=== PATIENT | male | born 1995 | race Caucasian/White ===

== ENCOUNTER 2016-04-06 16:31 | Emergency (ER) | payer BC ==
[2016-04-06] MEDS ORDERED: METOCLOPRAMIDE 10 MG TAB As Ordered ONE (19:02)
[2016-04-06] MEDS ORDERED: KETOROLAC 30 MG/ML VIAL (J1885) As Ordered ONE (19:03)
--- NOTE | 2016-04-06 19:25 | EDDOCDS ---
Nurse's Notes [facility] Name: Fernando Hackett Age: 21 yrs Sex: Male : 1995 Arrival Date: 04/06/2016 Time: 16:31 Bed TR3 Private MD: NO PRIMARY PHYSICIAN, . Diagnosis: Headache Presentation: 04/06 17:04 Presenting complaint: Patient states: "Woke up this morning with the worst headache lf1 I've ever had that lasted for two hours". Reports headache has gotten better but is currently 8/10 with photophobia and nausea. Pt reports history of stress headaches and migraines but that they have been worse lately. Pt. reports no neurologist or PCP. This patient has no additional risk factors. Adult Sepsis Screening: The patient does not have new or worsening altered mentation. Patient's respiratory rate is less than 22. Systolic blood pressure is greater than 100. Patient has a qSOFA score of 0- Negative Sepsis Screen. Suicide/Homicide risk assessment- the patient denies having any suicidal and/or homicidal ideations and does not present with any other emotional, behavioral or mental health complaints. 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 Transition of care: patient was not received from another setting of care. 17:04 Acuity: QUAN Level 3 lf1 17:04 Method Of Arrival: Walkin/Carried/Asstd lf1 Triage Assessment: 17:08 Headache History: This headache is more severe than any previous headaches the patient lf1 has experienced. General: Appears Pt reports this morning the headache was worse than any he has ever had, but at this time it is similar to previous headaches. Pain: Pain currently is 8 out of 10 on a pain scale. Quality of pain is described as throbbing, Pain began 10 hours ago Also complains of nausea, photophobia. HIV screening NA for this visit Offered previously. Neurological: Level of Consciousness is awake, alert, Oriented to person, place, time, Speech is normal. EENT: Reports photophobia. Respiratory: Respiratory effort is even, unlabored. GI: Reports nausea. Derm: Skin is normal. Historical: - Allergies: SULFA (SULFONAMIDES)swelling of hands and feet; - Home Meds: 1. Tylenol 325 mg Oral tab 2 tabs every 4 hours (Last dose: 04/06/2016 07:00) - PMHx: Migraine Headaches; - PSHx: none; - Social history: Smoking status: Patient uses tobacco products, current every day smoker. No barriers to communication noted, The patient speaks fluent Slovak, Speaks appropriately for age, Preferred Language: Slovak. - Family history: Not pertinent. - : The pt / caregiver states he / she is not on anticoagulants. Home medication list is obtained from the patient. - Exposure Risk Screening:: None identified. Screenin:10 Screening information is obtained from the patient. Fall risk: No risks identified. lf1 Assistance ADL's: requires no assistance with activities of daily living. Abuse/DV Screen: The patient / caregiver reports he/she is: not in a situation that causes fear, pain or injury. Nutritional screening: No deficits noted. Advance Directives: Currently, there is no health care proxy. There is no active DNR order. There is no living will. home support is adequate. Assessment: 19:20 Adult Sepsis Screening: The patient does not have new or worsening altered mentation. lf1 Patient's respiratory rate is less than 22. Systolic blood pressure is greater than 100. Patient has a qSOFA score of 0- Negative Sepsis Screen. 19:20 General: Appears in no apparent distress, comfortable, Behavior is cooperative. Pain: lf1 Location: base of the skull Pain currently is 5 out of 10 on a pain scale. Neurological: Level of Consciousness is awake, alert, Oriented to person, place, time. EENT: No deficits noted. Cardiovascular: No deficits noted. Respiratory: Respiratory effort is even, unlabored. GI: Denies nausea, vomiting. Derm: Skin is normal. Vital Signs: 16:32 BP 163 / 71; Pulse 96; Resp 18 S; Temp 96.3; Pulse Ox 98% on R/A; Weight 113.4 kg (R); dd6 Height 5 ft. 11 in. (180.34 cm) (R); 19:20 BP 140 / 84; Pulse 70; Resp 16; Pulse Ox 98% on R/A; Pain 5/10; lf1 19:23 Pain 5/10; lf1 16:32 Body Mass Index 34.87 (113.40 kg, 180.34 cm) dd6 Vitals: 16:32 Log In Time: April 06, 2016 at 16:30. dd6 ED Course: 16:31 Patient visited by Gilbert Andino PCA. dd6 16:31 NO PRIMARY PHYSICIAN, . is Private Physician. dd6 16:31 Patient moved to Waiting dd6 16:32 Patient moved to Pre RCE dd6 17:07 Triage Initiated lf1 18:25 Patient moved to Triage 1 kr3 18:31 Adan Centeno PA-C is PHCP. cc10 18:31 Ramón Zambrano MD is Attending Physician. cc10 18:31 Patient visited by Adan Centeno PA-C. cc10 18:31 Patient visited by Adan Centeno PA-C. cc10 18:55 Santiago Vargas is Referral Physician. cc10 19:09 Patient visited by Paulette Matute RN. ko2 19:20 Patient visited by Janice Person RN. lf1 19:20 The patient / caregiver is instructed regarding the plan of care and ED course. lf1 19:20 No IV's were initiated during this patient's visit. No procedures done that require lf1 assistance. 19:23 Patient moved to TR3 mdr Administered Medications: 19:05 Drug: ketorolac 60 mg [ketorolac 30 mg/mL (1 mL) injection solution (2 mL)] Route: IM; ko2 Site: right gluteus; 19:23 Follow up: Response: Pain is decreased lf1 19:05 Drug: Metoclopramide 10 mg [metoclopramide 10 mg tablet (1 tabs)] Route: PO; ko2 19:23 Follow up: Pain 5/10 Adult; Response: Pain is decreased lf1 Order Results: There are currently no results for this order. Outcome: 18:55 Discharge ordered by Provider. cc10 19:24 Discharge Assessment: Patient awake, alert and oriented x 3. No cognitive and/or lf1 functional deficits noted. Patient verbalized understanding of disposition instructions. Patient awake and alert. Oriented to person, place and time. Patient verbalized understanding of disposition instructions. patient administered narcotics - no. The following High Risk Discharge criteria are identified: None. Discharged to home ambulatory, with family. Condition: improved. Discharge instructions given to patient, Instructed on discharge instructions, follow up and referral plans. medication usage, Demonstrated understanding of instructions, medications, Pt was receptive of discharge instructions/ teaching. Prescriptions given X 2, Work note provided to patient. No special radiology studies were completed. Property :Personal belongings accompany Pt. 19:24 Patient left the ED. lf1 Signatures: Marisela Whitehead,RN RN kr3 Janice Person RN RN lf1 Gilbert Andino, INTAKE MAN INTAKE MAN dd6 Adan Centeno, PA-C PA-C cc10 Paulette Matute RN RN ko2 Femi Kaminski, INTAKE MAN INTAKE MAN mdr MTDD
--- NOTE | 2016-04-06 19:25 | EDDOCDS ---
Physician Documentation [facility] Name: Fernando Hackett Age: 21 yrs Sex: Male : 1995 Arrival Date: 04/06/2016 Time: 16:31 Bed TR3 Private MD: NO PRIMARY PHYSICIAN, . Disposition: 04/06/16 18:55 Discharged to Home/Self Care. Impression: Headache. - Condition is Stable. - Discharge Instructions: Migraine Headache. - Prescriptions for Naprosyn 500 mg Oral Tablet - take 1 tablet by ORAL route 2 times per day take with food; 30 tablet. - Medication Reconciliation, Local Pharmacy Hours, Work Release Form - 1 day form. - Follow up: Emergency Department; When: As needed. Follow up: Santiago Vargas; When: Call to arrange an appointment; Reason: Wound/Symptom Recheck, Recheck today's complaints, Continuance of care, To establish care. - Problem is chronic. - Symptoms have improved. Historical: - Allergies: SULFA (SULFONAMIDES)swelling of hands and feet; - Home Meds: 1. Tylenol 325 mg Oral tab 2 tabs every 4 hours (Last dose: 04/06/2016 07:00) - PMHx: Migraine Headaches; - PSHx: none; - Social history: Smoking status: Patient uses tobacco products, current every day smoker. No barriers to communication noted, The patient speaks fluent Argentine, Speaks appropriately for age, Preferred Language: Argentine. - Family history: Not pertinent. - : The pt / caregiver states he / she is not on anticoagulants. Home medication list is obtained from the patient. - Exposure Risk Screening:: None identified. Vital Signs: 04/06 16:32 BP 163 / 71; Pulse 96; Resp 18 S; Temp 96.3; Pulse Ox 98% on R/A; Weight 113.4 kg / 250 dd6 lbs (R); Height 5 ft. 11 in. (180.34 cm) (R); 19:20 BP 140 / 84; Pulse 70; Resp 16; Pulse Ox 98% on R/A; Pain 5/10; lf1 19:23 Pain 5/10; lf1 16:32 Body Mass Index 34.87 (113.40 kg, 180.34 cm) dd6 MDM: 18:34 Financial registration complete. gb 18:54 ketorolac 60 mg IM once ordered. cc10 18:54 Metoclopramide 10 mg PO once ordered. cc10 Administered Medications: 19:05 Drug: ketorolac 60 mg [ketorolac 30 mg/mL (1 mL) injection solution (2 mL)] Route: IM; ko2 Site: right gluteus; 19:23 Follow up: Response: Pain is decreased lf1 19:05 Drug: Metoclopramide 10 mg [metoclopramide 10 mg tablet (1 tabs)] Route: PO; ko2 19:23 Follow up: Pain 07/21 Adult; Response: Pain is decreased lf1 Signatures: Radha Gomes, Reg Reg gb Janice Person RN RN lf1 Adan Centeno PA-C PAKavin cc10 Paulette Matute RN ko2 MTDD
--- NOTE | 2016-04-08 20:26 | EDDOCDS ---
Physician Documentation [facility] Name: Fernando Hackett Age: 21 yrs Sex: Male : 1995 Arrival Date: 04/06/2016 Time: 16:31 Bed TR3 Private MD: NO PRIMARY PHYSICIAN, . Disposition: 04/06/16 18:55 Discharged to Home/Self Care. Impression: Headache. - Condition is Stable. - Discharge Instructions: Migraine Headache. - Prescriptions for Naprosyn 500 mg Oral Tablet - take 1 tablet by ORAL route 2 times per day take with food; 30 tablet. - Medication Reconciliation, Local Pharmacy Hours, Work Release Form - 1 day form. - Follow up: Emergency Department; When: As needed. Follow up: Santiago Vargas; When: Call to arrange an appointment; Reason: Wound/Symptom Recheck, Recheck today's complaints, Continuance of care, To establish care. - Problem is chronic. - Symptoms have improved. Historical: - Allergies: SULFA (SULFONAMIDES)swelling of hands and feet; - Home Meds: 1. Tylenol 325 mg Oral tab 2 tabs every 4 hours (Last dose: 04/06/2016 07:00) - PMHx: Migraine Headaches; - PSHx: none; - Social history: Smoking status: Patient uses tobacco products, current every day smoker. No barriers to communication noted, The patient speaks fluent Latvian, Speaks appropriately for age, Preferred Language: Latvian. - Family history: Not pertinent. - : The pt / caregiver states he / she is not on anticoagulants. Home medication list is obtained from the patient. - Exposure Risk Screening:: None identified. Vital Signs: 04/06 16:32 BP 163 / 71; Pulse 96; Resp 18 S; Temp 96.3; Pulse Ox 98% on R/A; Weight 113.4 kg / 250 dd6 lbs (R); Height 5 ft. 11 in. (180.34 cm) (R); 19:20 BP 140 / 84; Pulse 70; Resp 16; Pulse Ox 98% on R/A; Pain 5/10; lf1 19:23 Pain 5/10; lf1 16:32 Body Mass Index 34.87 (113.40 kg, 180.34 cm) dd6 MDM: 18:34 Financial registration complete. gb 18:54 ketorolac 60 mg IM once ordered. cc10 18:54 Metoclopramide 10 mg PO once ordered. cc10 20:30 [facility] Payment Agreement was scanned into [employer] and attached to record. gb 04/07 03:10 T-Sheet-- Draft Copy was scanned into [employer] and attached to record. hs2 Administered Medications: 04/06 19:05 Drug: ketorolac 60 mg [ketorolac 30 mg/mL (1 mL) injection solution (2 mL)] Route: IM; ko2 Site: right gluteus; 19:23 Follow up: Response: Pain is decreased lf1 19:05 Drug: Metoclopramide 10 mg [metoclopramide 10 mg tablet (1 tabs)] Route: PO; ko2 19:23 Follow up: Pain 5/ Adult; Response: Pain is decreased lf1 Signatures: Radha Gomes, Reg Reg gb Janice Person RN RN lf1 Adan Centeno, JUANITA PAKavin cc10 Joanie Sandoval, Reg Reg hs2 Paulette Matute RN ko2 The chart was reviewed and I authenticate all verbal orders and agree with the evaluation and treatment provided.Attachments: 20:30 [facility] Payment Agreement gb 04/07 03:10 T-Sheet-- Draft Copy hs2 Chart Complete MTDD
--- NOTE | 2016-04-08 20:26 | EDDOCDS ---
Physician Documentation [facility] Name: Fernando Hackett Age: 21 yrs Sex: Male : 1995 Arrival Date: 04/06/2016 Time: 16:31 Bed TR3 Private MD: NO PRIMARY PHYSICIAN, . Disposition: 04/06/16 18:55 Discharged to Home/Self Care. Impression: Headache. - Condition is Stable. - Discharge Instructions: Migraine Headache. - Prescriptions for Naprosyn 500 mg Oral Tablet - take 1 tablet by ORAL route 2 times per day take with food; 30 tablet. - Medication Reconciliation, Local Pharmacy Hours, Work Release Form - 1 day form. - Follow up: Emergency Department; When: As needed. Follow up: Santiago Vargas; When: Call to arrange an appointment; Reason: Wound/Symptom Recheck, Recheck today's complaints, Continuance of care, To establish care. - Problem is chronic. - Symptoms have improved. Historical: - Allergies: SULFA (SULFONAMIDES)swelling of hands and feet; - Home Meds: 1. Tylenol 325 mg Oral tab 2 tabs every 4 hours (Last dose: 04/06/2016 07:00) - PMHx: Migraine Headaches; - PSHx: none; - Social history: Smoking status: Patient uses tobacco products, current every day smoker. No barriers to communication noted, The patient speaks fluent Kuwaiti, Speaks appropriately for age, Preferred Language: Kuwaiti. - Family history: Not pertinent. - : The pt / caregiver states he / she is not on anticoagulants. Home medication list is obtained from the patient. - Exposure Risk Screening:: None identified. Vital Signs: 04/06 16:32 BP 163 / 71; Pulse 96; Resp 18 S; Temp 96.3; Pulse Ox 98% on R/A; Weight 113.4 kg / 250 dd6 lbs (R); Height 5 ft. 11 in. (180.34 cm) (R); 19:20 BP 140 / 84; Pulse 70; Resp 16; Pulse Ox 98% on R/A; Pain 5/10; lf1 19:23 Pain 5/10; lf1 16:32 Body Mass Index 34.87 (113.40 kg, 180.34 cm) dd6 MDM: 18:34 Financial registration complete. gb 18:54 ketorolac 60 mg IM once ordered. cc10 18:54 Metoclopramide 10 mg PO once ordered. cc10 20:30 [facility] Payment Agreement was scanned into [employer] and attached to record. gb 04/07 03:10 T-Sheet-- Draft Copy was scanned into [employer] and attached to record. hs2 Administered Medications: 04/06 19:05 Drug: ketorolac 60 mg [ketorolac 30 mg/mL (1 mL) injection solution (2 mL)] Route: IM; ko2 Site: right gluteus; 19:23 Follow up: Response: Pain is decreased lf1 19:05 Drug: Metoclopramide 10 mg [metoclopramide 10 mg tablet (1 tabs)] Route: PO; ko2 19:23 Follow up: Pain 5/ Adult; Response: Pain is decreased lf1 Signatures: Radha Gomes, Reg Reg gb Janice Person RN RN lf1 Adan Centeno, JUANITA PAKavin cc10 Joanie Sandoval, Reg Reg hs2 Paulette Matute RN ko2 The chart was reviewed and I authenticate all verbal orders and agree with the evaluation and treatment provided.Attachments: 20:30 [facility] Payment Agreement gb 04/07 03:10 T-Sheet-- Draft Copy hs2 Chart Complete MTDD
--- NOTE | 2016-04-08 20:26 | EDDOCDS ---
Nurse's Notes [facility] Name: Fernando Hackett Age: 21 yrs Sex: Male : 1995 Arrival Date: 04/06/2016 Time: 16:31 Bed TR3 Private MD: NO PRIMARY PHYSICIAN, . Diagnosis: Headache Presentation: 04/06 17:04 Presenting complaint: Patient states: "Woke up this morning with the worst headache lf1 I've ever had that lasted for two hours". Reports headache has gotten better but is currently 8/10 with photophobia and nausea. Pt reports history of stress headaches and migraines but that they have been worse lately. Pt. reports no neurologist or PCP. This patient has no additional risk factors. Adult Sepsis Screening: The patient does not have new or worsening altered mentation. Patient's respiratory rate is less than 22. Systolic blood pressure is greater than 100. Patient has a qSOFA score of 0- Negative Sepsis Screen. Suicide/Homicide risk assessment- the patient denies having any suicidal and/or homicidal ideations and does not present with any other emotional, behavioral or mental health complaints. 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 Transition of care: patient was not received from another setting of care. 17:04 Acuity: QUAN Level 3 lf1 17:04 Method Of Arrival: Walkin/Carried/Asstd lf1 Triage Assessment: 17:08 Headache History: This headache is more severe than any previous headaches the patient lf1 has experienced. General: Appears Pt reports this morning the headache was worse than any he has ever had, but at this time it is similar to previous headaches. Pain: Pain currently is 8 out of 10 on a pain scale. Quality of pain is described as throbbing, Pain began 10 hours ago Also complains of nausea, photophobia. HIV screening NA for this visit Offered previously. Neurological: Level of Consciousness is awake, alert, Oriented to person, place, time, Speech is normal. EENT: Reports photophobia. Respiratory: Respiratory effort is even, unlabored. GI: Reports nausea. Derm: Skin is normal. Historical: - Allergies: SULFA (SULFONAMIDES)swelling of hands and feet; - Home Meds: 1. Tylenol 325 mg Oral tab 2 tabs every 4 hours (Last dose: 04/06/2016 07:00) - PMHx: Migraine Headaches; - PSHx: none; - Social history: Smoking status: Patient uses tobacco products, current every day smoker. No barriers to communication noted, The patient speaks fluent [place] Islander, Speaks appropriately for age, Preferred Language: [place] Islander. - Family history: Not pertinent. - : The pt / caregiver states he / she is not on anticoagulants. Home medication list is obtained from the patient. - Exposure Risk Screening:: None identified. Screenin:10 Screening information is obtained from the patient. Fall risk: No risks identified. lf1 Assistance ADL's: requires no assistance with activities of daily living. Abuse/DV Screen: The patient / caregiver reports he/she is: not in a situation that causes fear, pain or injury. Nutritional screening: No deficits noted. Advance Directives: Currently, there is no health care proxy. There is no active DNR order. There is no living will. home support is adequate. Assessment: 19:20 Adult Sepsis Screening: The patient does not have new or worsening altered mentation. lf1 Patient's respiratory rate is less than 22. Systolic blood pressure is greater than 100. Patient has a qSOFA score of 0- Negative Sepsis Screen. 19:20 General: Appears in no apparent distress, comfortable, Behavior is cooperative. Pain: lf1 Location: base of the skull Pain currently is 5 out of 10 on a pain scale. Neurological: Level of Consciousness is awake, alert, Oriented to person, place, time. EENT: No deficits noted. Cardiovascular: No deficits noted. Respiratory: Respiratory effort is even, unlabored. GI: Denies nausea, vomiting. Derm: Skin is normal. Vital Signs: 16:32 BP 163 / 71; Pulse 96; Resp 18 S; Temp 96.3; Pulse Ox 98% on R/A; Weight 113.4 kg (R); dd6 Height 5 ft. 11 in. (180.34 cm) (R); 19:20 BP 140 / 84; Pulse 70; Resp 16; Pulse Ox 98% on R/A; Pain 5/10; lf1 19:23 Pain 5/10; lf1 16:32 Body Mass Index 34.87 (113.40 kg, 180.34 cm) dd6 Vitals: 16:32 Log In Time: April 06, 2016 at 16:30. dd6 ED Course: 16:31 Patient visited by Gilbert Andino PCA. dd6 16:31 NO PRIMARY PHYSICIAN, . is Private Physician. dd6 16:31 Patient moved to Waiting dd6 16:32 Patient moved to Pre RCE dd6 17:07 Triage Initiated lf1 18:25 Patient moved to Triage 1 kr3 18:31 Adan Centeno PA-C is PHCP. cc10 18:31 Ramón Zambrano MD is Attending Physician. cc10 18:31 Patient visited by Adan Centeno PA-C. cc10 18:31 Patient visited by Adan Centeno PA-C. cc10 18:55 Santiago Vargas is Referral Physician. cc10 19:09 Patient visited by Paulette Matute RN. ko2 19:20 Patient visited by Janice Person RN. lf1 19:20 The patient / caregiver is instructed regarding the plan of care and ED course. lf1 19:20 No IV's were initiated during this patient's visit. No procedures done that require lf1 assistance. 19:23 Patient moved to TR3 [facility] 20:30 [facility] Payment Agreement was scanned into [employer] and attached to record. gb 04/07 03:10 T-Sheet-- Draft Copy was scanned into [employer] and attached to record. hs2 Administered Medications: 04/06 19:05 Drug: ketorolac 60 mg [ketorolac 30 mg/mL (1 mL) injection solution (2 mL)] Route: IM; ko2 Site: right gluteus; 19:23 Follow up: Response: Pain is decreased lf1 19:05 Drug: Metoclopramide 10 mg [metoclopramide 10 mg tablet (1 tabs)] Route: PO; ko2 19:23 Follow up: Pain 5/10 Adult; Response: Pain is decreased lf1 Order Results: There are currently no results for this order. Outcome: 18:55 Discharge ordered by Provider. cc10 19:24 Discharge Assessment: Patient awake, alert and oriented x 3. No cognitive and/or lf1 functional deficits noted. Patient verbalized understanding of disposition instructions. Patient awake and alert. Oriented to person, place and time. Patient verbalized understanding of disposition instructions. patient administered narcotics - no. The following High Risk Discharge criteria are identified: None. Discharged to home ambulatory, with family. Condition: improved. Discharge instructions given to patient, Instructed on discharge instructions, follow up and referral plans. medication usage, Demonstrated understanding of instructions, medications, Pt was receptive of discharge instructions/ teaching. Prescriptions given X 2, Work note provided to patient. No special radiology studies were completed. Property :Personal belongings accompany Pt. 19:24 Patient left the ED. lf1 Signatures: Radha Gomes, Reg Reg gb Marisela Whitehead,RN RN kr3 Janice PersonRN RN lf1 Gilbert Andino, ROAD MECHANIC ROAD MECHANIC dd6 Adan Centeno, PA-C PA-C cc10 Paulette MatuteRN RN ko2 Femi Kaminski, ROAD MECHANIC ROAD MECHANIC mdr Joanie Sandoval, Reg Reg hs2 Chart Complete MTDD
== END 2016-04-06 19:24 | disposition home or self-care (01) ==
LOC: M ED 16:31
DX: R51 Headache (principal); F17.210 Nicotine dependence, cigarettes, uncomplicated; Z88.2 Allergy status to sulfonamides
CPT/HCPCS: 96372; 99283; J1885

== ENCOUNTER 2016-04-07 11:29 | Emergency (ER) | payer BC ==
[2016-04-07] MEDS ORDERED: METOCLOPRAMIDE 10 MG TAB As Ordered ONE (14:23)
[2016-04-07] MEDS ORDERED: ONDANSETRON 4 MG ORAL DISINTEGRATING TAB (S0181) As Ordered ONE (14:23)
[2016-04-07] MEDS ORDERED: AUGMENTIN 875 MG TAB As Ordered ONE (14:23)
[2016-04-07] MEDS ORDERED: KETOROLAC 30 MG/ML VIAL (J1885) As Ordered ONE (14:24)
--- NOTE | 2016-04-07 15:37 | EDDOCDS ---
Nurse's Notes [facility] Name: Fernando Hackett Age: 21 yrs Sex: Male : 1995 Arrival Date: 04/07/2016 Time: 11:29 Bed PD Private MD: NO PRIMARY PHYSICIAN, . Diagnosis: Acute sinusitis;Headache-Acute;Nausea and vomiting Presentation: 04/07 11:37 Presenting complaint: Patient states: Headache began yesterday seen here yesterday for mlb1 same. This patient has no additional risk factors. Adult Sepsis Screening: The patient does not have new or worsening altered mentation. Patient's respiratory rate is less than 22. Systolic blood pressure is greater than 100. Patient has a qSOFA score of 0- Negative Sepsis Screen. Suicide/Homicide risk assessment- the patient denies having any suicidal and/or homicidal ideations and does not present with any other emotional, behavioral or mental health complaints. 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 Transition of care: patient was not received from another setting of care. 11:37 Acuity: QUAN Level 4 mlb1 11:37 Method Of Arrival: Walkin/Carried/Asstd mlb1 Triage Assessment: 11:39 Headache History: This patient has a history of headaches and the character of this mlb1 headache is like all previous headaches. General: Appears in no apparent distress, Behavior is appropriate for age, cooperative. Pain: Location: head Pain currently is 9 out of 10 on a pain scale. Pain: Pain began 2-3 days ago Also complains of photophobia. HIV screening NA for this visit Offered previously. Neurological: Reports photophobia. Historical: - Allergies: SULFA (SULFONAMIDES)swelling of hands and feet; - Home Meds: 1. none - PMHx: Migraine Headaches; - PSHx: none; - Social history: Smoking status: Patient uses tobacco products, light tobacco smoker. No barriers to communication noted, The patient speaks fluent Danish, Speaks appropriately for age. - Family history: Not pertinent. - : The pt / caregiver states he / she is not on anticoagulants. Home medication list is obtained from the patient. - Exposure Risk Screening:: None identified. Screenin:39 Screening information is obtained from the patient. Fall risk: No risks identified. mlb1 Assistance ADL's: requires no assistance with activities of daily living. Abuse/DV Screen: The patient / caregiver reports he/she is: not in a situation that causes fear, pain or injury. Nutritional screening: No deficits noted. Advance Directives: Currently, there is no health care proxy. home support is adequate. Assessment: 15:34 Adult Sepsis Screening: The patient does not have new or worsening altered mentation. ttb Patient's respiratory rate is less than 22. Systolic blood pressure is greater than 100. Patient has a qSOFA score of 0- Negative Sepsis Screen. General: Appears in no apparent distress, well nourished, well groomed, Behavior is appropriate for age, cooperative, pleasant. Pain: Location: head Pain currently is 4 out of 10 on a pain scale. Neurological: Level of Consciousness is awake, alert, Reports headache. EENT: Reports nasal congestion nasal discharge. Cardiovascular: Chest pain is denied. Respiratory: No deficits noted. Airway is patent Denies cough, shortness of breath. GI: Reports nausea, Denies vomiting. Derm: Skin is normal. Vital Signs: 11:31 BP 162 / 71; Pulse 70; Resp 18; Temp 98.3; Pulse Ox 98% on R/A; Weight 113.4 kg (R); elp Height 5 ft. 11 in. (180.34 cm) (R); Pain 9/10; 14:25 BP 148 / 80; cmb 15:28 BP 134 / 78 LA Sitting (man/lg); Pulse 75; Resp 16; Temp 98.1; Pulse Ox 97% ; Pain 4/10;cmb 11:31 Body Mass Index 34.87 (113.40 kg, 180.34 cm) [facility] Vitals: 11:31 Log In Time: April 07, 2016 at 11:28. [facility] ED Course: 11:30 Patient visited by Emeli Gonzales PCA. elp 11:30 NO PRIMARY PHYSICIAN, . is Private Physician. elp 11:30 Patient moved to Waiting elp 11:32 Patient visited by Emeli Gonzales PCA. elp 11:32 Patient moved to Pre RCE elp 11:37 Patient visited by Richmond Angelo, JOY. mlb1 11:38 Triage Initiated mlb1 11:40 Patient visited by Richmond Angelo, RN. mlb1 13:40 Patient moved to Triage 1 cmb 13:56 Kinza Figueroa [facility]-C [facility]. ef1 13:56 Annemarie Long MD is Attending Physician. ef1 13:56 Patient visited by Kinza Figueroa PA-C. ef1 14:26 Patient visited by Maame Reyes. cmb 14:29 Patient moved to PD2 / cmb 14:37 [facility] Payment Agreement was scanned into [employer] and attached to record. mm15 14:59 Patient visited by Kinza Figueroa PA-C. ef1 15:24 [facility] is Referral Physician. ef1 15:28 Patient visited by Maame Reyes. cmb 15:34 The patient / caregiver is instructed regarding the plan of care and ED course. Patient ttb has correct armband on for positive identification. 15:34 No IV's were initiated during this patient's visit. No procedures done that require ttb assistance. Administered Medications: 14:28 Drug: Ondansetron ODT 4 mg [ondansetron 4 mg disintegrating tablet (1 tabs)] Route: PO; mlb1 14:28 Drug: Metoclopramide 10 mg [metoclopramide 10 mg tablet (1 tabs)] Route: PO; mlb1 14:28 Drug: ketorolac 60 mg [ketorolac 30 mg/mL (1 mL) injection solution (2 mL)] Route: IM; mlb1 Site: left gluteus; 15:34 Follow up: Response: No Adverse Reaction; Pain is decreased ttb 14:28 Drug: Amoxicillin-Clavulanate 1 tabs [amoxicillin 875 mg-potassium clavulanate 125 mg mlb1 tablet (1 tabs)] Route: PO; Order Results: There are currently no results for this order. Outcome: 15:24 Discharge ordered by Provider. ef1 15:34 Discharge Assessment: Patient awake, alert and oriented x 3. No cognitive and/or ttb functional deficits noted. Patient verbalized understanding of disposition instructions. Patient awake and alert. patient administered narcotics - no. The following High Risk Discharge criteria are identified: None. Discharged to home ambulatory. Condition: good Condition: stable Condition: improved. Discharge instructions given to patient, Instructed on discharge instructions, follow up and referral plans. medication usage, Demonstrated understanding of instructions, medications, Pt was receptive of discharge instructions/ teaching. Prescriptions given X 4, 5. No special radiology studies were completed. Property :Personal belongings accompany Pt. 15:36 Patient left the ED. ttb Signatures: Richmond Angelo RN RN mlb1 Kinza Figueroa PA-C PA-C ef1 Maame Reyes Teresa, RN RN ttb Leonarda Oseguera mm15 Emeli Gonzales, SAM INSURANCE POLICY CLERK elp MTDD
--- NOTE | 2016-04-07 15:37 | EDDOCDS ---
Physician Documentation [facility] Name: Fernando Hackett Age: 21 yrs Sex: Male : 1995 Arrival Date: 04/07/2016 Time: 11:29 Bed PD Private MD: NO PRIMARY PHYSICIAN, . Disposition: 04/07/16 15:24 Discharged to Home/Self Care. Impression: Acute sinusitis, Headache - Acute, Nausea and vomiting. - Condition is Stable. - Discharge Instructions: General Headache Without Cause, Sinusitis, [id number], Nausea and Vomiting, [id number]. - Prescriptions for Augmentin 875- 125 mg Oral Tablet - take 1 tablet by ORAL route every 12 hours for 10 days; 20 tablet. Ibuprofen 800 mg Oral Tablet - take 1 tablet by ORAL route every 8 hours As needed take with food; 30 tablet. Claritin 10 mg Oral Tablet - take 1 tablet by ORAL route once daily As needed; 30 tablet. Mucinex 600 mg - take 1 tablet by ORAL route 2 times per day; 30 tablet. ZOFRAN ODT 4 mg - dissolve 1 tablet by ORAL route 4 times per day As needed do not chew, do not swallow whole; 10 tablet. - Referral List Call for Appointment, Medication Reconciliation, Local Pharmacy Hours, Work Release Form - 2 day form. - [facility] ; When: 1 - 2 days; Reason: Recheck today's complaints, Continuance of care. Follow up: Emergency Department; Reason: Worsening of conditions. - Problem is new. - Symptoms have improved. Historical: - Allergies: SULFA (SULFONAMIDES)swelling of hands and feet; - Home Meds: 1. none - PMHx: Migraine Headaches; - PSHx: none; - Social history: Smoking status: Patient uses tobacco products, light tobacco smoker. No barriers to communication noted, The patient speaks fluent Chinese, Speaks appropriately for age. - Family history: Not pertinent. - : The pt / caregiver states he / she is not on anticoagulants. Home medication list is obtained from the patient. - Exposure Risk Screening:: None identified. Vital Signs: 04/07 11:31 BP 162 / 71; Pulse 70; Resp 18; Temp 98.3; Pulse Ox 98% on R/A; Weight 113.4 kg / 250 elp lbs (R); Height 5 ft. 11 in. (180.34 cm) (R); Pain 9/10; 14:25 BP 148 / 80; cmb 15:28 BP 134 / 78 LA Sitting (man/lg); Pulse 75; Resp 16; Temp 98.1; Pulse Ox 97% ; Pain 4/10;cmb 11:31 Body Mass Index 34.87 (113.40 kg, 180.34 cm) elp MDM: 14:16 Ondansetron ODT Oral Disintegrating Tablet 4 mg PO once ordered. ef1 14:16 Metoclopramide 10 mg PO once ordered. ef1 14:16 ketorolac 60 mg IM once ordered. ef1 14:16 Amoxicillin-Clavulanate 875 mg 1 tabs PO once ordered. ef1 14:16 Financial registration complete. lg 14:17 Recheck B/P ordered. ef1 14:37 [facility] Payment Agreement was scanned into [employer] and attached to record. mm15 Administered Medications: 14:28 Drug: Ondansetron ODT 4 mg [ondansetron 4 mg disintegrating tablet (1 tabs)] Route: PO; mlb1 14:28 Drug: Metoclopramide 10 mg [metoclopramide 10 mg tablet (1 tabs)] Route: PO; mlb1 14:28 Drug: ketorolac 60 mg [ketorolac 30 mg/mL (1 mL) injection solution (2 mL)] Route: IM; mlb1 Site: left gluteus; 15:34 Follow up: Response: No Adverse Reaction; Pain is decreased ttb 14:28 Drug: Amoxicillin-Clavulanate 1 tabs [amoxicillin 875 mg-potassium clavulanate 125 mg mlb1 tablet (1 tabs)] Route: PO; Signatures: Damian Donahue, Reg Reg lg Richmond Angelo RN RN mlb1 Kinza Figueroa, PA-C PA-C ef1 Alondra Jones RN RN ttb Leonarda Oseguera mm15 The chart was reviewed and I authenticate all verbal orders and agree with the evaluation and treatment provided.Attachments: 14:37 [facility] Payment Agreement mm15 MTDD
--- NOTE | 2016-04-09 16:36 | EDDOCDS ---
Nurse's Notes [facility] Name: Fernando Hackett Age: 21 yrs Sex: Male : 1995 Arrival Date: 04/07/2016 Time: 11:29 Bed PD Private MD: NO PRIMARY PHYSICIAN, . Diagnosis: Acute sinusitis;Headache-Acute;Nausea and vomiting Presentation: 04/07 11:37 Presenting complaint: Patient states: Headache began yesterday seen here yesterday for mlb1 same. This patient has no additional risk factors. Adult Sepsis Screening: The patient does not have new or worsening altered mentation. Patient's respiratory rate is less than 22. Systolic blood pressure is greater than 100. Patient has a qSOFA score of 0- Negative Sepsis Screen. Suicide/Homicide risk assessment- the patient denies having any suicidal and/or homicidal ideations and does not present with any other emotional, behavioral or mental health complaints. 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 Transition of care: patient was not received from another setting of care. 11:37 Acuity: QUAN Level 4 mlb1 11:37 Method Of Arrival: Walkin/Carried/Asstd mlb1 Triage Assessment: 11:39 Headache History: This patient has a history of headaches and the character of this mlb1 headache is like all previous headaches. General: Appears in no apparent distress, Behavior is appropriate for age, cooperative. Pain: Location: head Pain currently is 9 out of 10 on a pain scale. Pain: Pain began 2-3 days ago Also complains of photophobia. HIV screening NA for this visit Offered previously. Neurological: Reports photophobia. Historical: - Allergies: SULFA (SULFONAMIDES)swelling of hands and feet; - Home Meds: 1. none - PMHx: Migraine Headaches; - PSHx: none; - Social history: Smoking status: Patient uses tobacco products, light tobacco smoker. No barriers to communication noted, The patient speaks fluent Sami, Speaks appropriately for age. - Family history: Not pertinent. - : The pt / caregiver states he / she is not on anticoagulants. Home medication list is obtained from the patient. - Exposure Risk Screening:: None identified. Screenin:39 Screening information is obtained from the patient. Fall risk: No risks identified. mlb1 Assistance ADL's: requires no assistance with activities of daily living. Abuse/DV Screen: The patient / caregiver reports he/she is: not in a situation that causes fear, pain or injury. Nutritional screening: No deficits noted. Advance Directives: Currently, there is no health care proxy. home support is adequate. Assessment: 15:34 Adult Sepsis Screening: The patient does not have new or worsening altered mentation. ttb Patient's respiratory rate is less than 22. Systolic blood pressure is greater than 100. Patient has a qSOFA score of 0- Negative Sepsis Screen. General: Appears in no apparent distress, well nourished, well groomed, Behavior is appropriate for age, cooperative, pleasant. Pain: Location: head Pain currently is 4 out of 10 on a pain scale. Neurological: Level of Consciousness is awake, alert, Reports headache. EENT: Reports nasal congestion nasal discharge. Cardiovascular: Chest pain is denied. Respiratory: No deficits noted. Airway is patent Denies cough, shortness of breath. GI: Reports nausea, Denies vomiting. Derm: Skin is normal. Vital Signs: 11:31 BP 162 / 71; Pulse 70; Resp 18; Temp 98.3; Pulse Ox 98% on R/A; Weight 113.4 kg (R); elp Height 5 ft. 11 in. (180.34 cm) (R); Pain 9/10; 14:25 BP 148 / 80; cmb 15:28 BP 134 / 78 LA Sitting (man/lg); Pulse 75; Resp 16; Temp 98.1; Pulse Ox 97% ; Pain 4/10;cmb 11:31 Body Mass Index 34.87 (113.40 kg, 180.34 cm) [facility] Vitals: 11:31 Log In Time: April 07, 2016 at 11:28. [facility] ED Course: 11:30 Patient visited by Emeli Gonzales PCA. elp 11:30 NO PRIMARY PHYSICIAN, . is Private Physician. elp 11:30 Patient moved to Waiting elp 11:32 Patient visited by Emeli Gonzales PCA. elp 11:32 Patient moved to Pre RCE elp 11:37 Patient visited by Richmond Angelo, JOY. mlb1 11:38 Triage Initiated mlb1 11:40 Patient visited by Richmond Angelo, RN. mlb1 13:40 Patient moved to Triage 1 cmb 13:56 [facility] ef1 13:56 Annemarie Long MD is Attending Physician. ef1 13:56 Patient visited by Kinza Figueroa PA-C. ef1 14:26 Patient visited by Maame Reyes. cmb 14:29 Patient moved to PD2 / cmb 14:37 [facility] Payment Agreement was scanned into [employer] and attached to record. mm15 14:59 Patient visited by Kinza Figueroa PA-C. ef1 15:24 [facility] is Referral Physician. ef1 15:28 Patient visited by Maame Reyes. cmb 15:34 The patient / caregiver is instructed regarding the plan of care and ED course. Patient ttb has correct armband on for positive identification. 15:34 No IV's were initiated during this patient's visit. No procedures done that require ttb assistance. 04/08 10:58 T-Sheet-- Draft Copy was scanned into [employer] and attached to record. gb Administered Medications: 04/07 14:28 Drug: Ondansetron ODT 4 mg [ondansetron 4 mg disintegrating tablet (1 tabs)] Route: PO; mlb1 14:28 Drug: Metoclopramide 10 mg [metoclopramide 10 mg tablet (1 tabs)] Route: PO; mlb1 14:28 Drug: ketorolac 60 mg [ketorolac 30 mg/mL (1 mL) injection solution (2 mL)] Route: IM; mlb1 Site: left gluteus; 15:34 Follow up: Response: No Adverse Reaction; Pain is decreased ttb 14:28 Drug: Amoxicillin-Clavulanate 1 tabs [amoxicillin 875 mg-potassium clavulanate 125 mg mlb1 tablet (1 tabs)] Route: PO; Order Results: There are currently no results for this order. Outcome: 15:24 Discharge ordered by Provider. ef1 15:34 Discharge Assessment: Patient awake, alert and oriented x 3. No cognitive and/or ttb functional deficits noted. Patient verbalized understanding of disposition instructions. Patient awake and alert. patient administered narcotics - no. The following High Risk Discharge criteria are identified: None. Discharged to home ambulatory. Condition: good Condition: stable Condition: improved. Discharge instructions given to patient, Instructed on discharge instructions, follow up and referral plans. medication usage, Demonstrated understanding of instructions, medications, Pt was receptive of discharge instructions/ teaching. Prescriptions given X 4, 5. No special radiology studies were completed. Property :Personal belongings accompany Pt. 15:36 Patient left the ED. ttb Signatures: Radha Gomes, Reg Reg gb Richmond Angelo RN RN mlb1 Henry, Kinza, PATeresaC PA-C ef1 Maame Reyes Teresa, RN RN ttb Leonarda Oseguera mm15 Emeli Gonzales, SAM CLINICAL DATA MANAGEMENT DIRECTOR elp Chart Complete MTDD
--- NOTE | 2016-04-09 16:36 | EDDOCDS ---
Physician Documentation [facility] Name: Fernando Hackett Age: 21 yrs Sex: Male : 1995 Arrival Date: 04/07/2016 Time: 11:29 Bed PD Private MD: NO PRIMARY PHYSICIAN, . Disposition: 04/07/16 15:24 Discharged to Home/Self Care. Impression: Acute sinusitis, Headache - Acute, Nausea and vomiting. - Condition is Stable. - Discharge Instructions: General Headache Without Cause, Sinusitis, [id number]-[id number], Nausea and Vomiting, Wpjn-[id number]. - Prescriptions for Augmentin 875- 125 mg Oral Tablet - take 1 tablet by ORAL route every 12 hours for 10 days; 20 tablet. Ibuprofen 800 mg Oral Tablet - take 1 tablet by ORAL route every 8 hours As needed take with food; 30 tablet. Claritin 10 mg Oral Tablet - take 1 tablet by ORAL route once daily As needed; 30 tablet. Mucinex 600 mg - take 1 tablet by ORAL route 2 times per day; 30 tablet. ZOFRAN ODT 4 mg - dissolve 1 tablet by ORAL route 4 times per day As needed do not chew, do not swallow whole; 10 tablet. - Referral List Call for Appointment, Medication Reconciliation, Local Pharmacy Hours, Work Release Form - 2 day form. - [facility] ; When: 1 - 2 days; Reason: Recheck today's complaints, Continuance of care. Follow up: Emergency Department; Reason: Worsening of conditions. - Problem is new. - Symptoms have improved. Historical: - Allergies: SULFA (SULFONAMIDES)swelling of hands and feet; - Home Meds: 1. none - PMHx: Migraine Headaches; - PSHx: none; - Social history: Smoking status: Patient uses tobacco products, light tobacco smoker. No barriers to communication noted, The patient speaks fluent Turkish, Speaks appropriately for age. - Family history: Not pertinent. - : The pt / caregiver states he / she is not on anticoagulants. Home medication list is obtained from the patient. - Exposure Risk Screening:: None identified. Vital Signs: 04/07 11:31 BP 162 / 71; Pulse 70; Resp 18; Temp 98.3; Pulse Ox 98% on R/A; Weight 113.4 kg / 250 elp lbs (R); Height 5 ft. 11 in. (180.34 cm) (R); Pain 9/10; 14:25 BP 148 / 80; cmb 15:28 BP 134 / 78 LA Sitting (man/lg); Pulse 75; Resp 16; Temp 98.1; Pulse Ox 97% ; Pain 4/10;cmb 11:31 Body Mass Index 34.87 (113.40 kg, 180.34 cm) elp MDM: 14:16 Ondansetron ODT Oral Disintegrating Tablet 4 mg PO once ordered. ef1 14:16 Metoclopramide 10 mg PO once ordered. ef1 14:16 ketorolac 60 mg IM once ordered. ef1 14:16 Amoxicillin-Clavulanate 875 mg 1 tabs PO once ordered. ef1 14:16 Financial registration complete. lg 14:17 Recheck B/P ordered. ef1 14:37 [facility] Payment Agreement was scanned into [employer] and attached to record. mm15 04/08 10:58 T-Sheet-- Draft Copy was scanned into [employer] and attached to record. gb Administered Medications: 04/07 14:28 Drug: Ondansetron ODT 4 mg [ondansetron 4 mg disintegrating tablet (1 tabs)] Route: PO; mlb1 14:28 Drug: Metoclopramide 10 mg [metoclopramide 10 mg tablet (1 tabs)] Route: PO; mlb1 14:28 Drug: ketorolac 60 mg [ketorolac 30 mg/mL (1 mL) injection solution (2 mL)] Route: IM; mlb1 Site: left gluteus; 15:34 Follow up: Response: No Adverse Reaction; Pain is decreased ttb 14:28 Drug: Amoxicillin-Clavulanate 1 tabs [amoxicillin 875 mg-potassium clavulanate 125 mg mlb1 tablet (1 tabs)] Route: PO; Signatures: Radha Gomes, Reg Reg gb Damian Donahue, Reg Reg lg Richmond Angelo RN RN mlb1 Kinza Figueroa PATeresaC PATeresaC ef1 Alondra Jones RN RN ttb Leonarda Oseguera mm15 The chart was reviewed and I authenticate all verbal orders and agree with the evaluation and treatment provided.Attachments: 14:37 [facility] Payment Agreement mm15 01/26 10:58 T-Sheet-- Draft Copy gb Chart Complete MTDD
--- NOTE | 2016-04-09 16:36 | EDDOCDS ---
Physician Documentation [facility] Name: Fernando Hackett Age: 21 yrs Sex: Male : 1995 Arrival Date: 04/07/2016 Time: 11:29 Bed PD Private MD: NO PRIMARY PHYSICIAN, . Disposition: 04/07/16 15:24 Discharged to Home/Self Care. Impression: Acute sinusitis, Headache - Acute, Nausea and vomiting. - Condition is Stable. - Discharge Instructions: General Headache Without Cause, Sinusitis, Dkim-cp-[id number], Nausea and Vomiting, Ymhy-nh-Ywqy. - Prescriptions for Augmentin 875- 125 mg Oral Tablet - take 1 tablet by ORAL route every 12 hours for 10 days; 20 tablet. Ibuprofen 800 mg Oral Tablet - take 1 tablet by ORAL route every 8 hours As needed take with food; 30 tablet. Claritin 10 mg Oral Tablet - take 1 tablet by ORAL route once daily As needed; 30 tablet. Mucinex 600 mg - take 1 tablet by ORAL route 2 times per day; 30 tablet. ZOFRAN ODT 4 mg - dissolve 1 tablet by ORAL route 4 times per day As needed do not chew, do not swallow whole; 10 tablet. - Referral List Call for Appointment, Medication Reconciliation, Local Pharmacy Hours, Work Release Form - 2 day form. - [facility] ; When: 1 - 2 days; Reason: Recheck today's complaints, Continuance of care. Follow up: Emergency Department; Reason: Worsening of conditions. - Problem is new. - Symptoms have improved. Historical: - Allergies: SULFA (SULFONAMIDES)swelling of hands and feet; - Home Meds: 1. none - PMHx: Migraine Headaches; - PSHx: none; - Social history: Smoking status: Patient uses tobacco products, light tobacco smoker. No barriers to communication noted, The patient speaks fluent Georgian, Speaks appropriately for age. - Family history: Not pertinent. - : The pt / caregiver states he / she is not on anticoagulants. Home medication list is obtained from the patient. - Exposure Risk Screening:: None identified. Vital Signs: 04/07 11:31 BP 162 / 71; Pulse 70; Resp 18; Temp 98.3; Pulse Ox 98% on R/A; Weight 113.4 kg / 250 elp lbs (R); Height 5 ft. 11 in. (180.34 cm) (R); Pain 9/10; 14:25 BP 148 / 80; cmb 15:28 BP 134 / 78 LA Sitting (man/lg); Pulse 75; Resp 16; Temp 98.1; Pulse Ox 97% ; Pain 4/10;cmb 11:31 Body Mass Index 34.87 (113.40 kg, 180.34 cm) elp MDM: 14:16 Ondansetron ODT Oral Disintegrating Tablet 4 mg PO once ordered. ef1 14:16 Metoclopramide 10 mg PO once ordered. ef1 14:16 ketorolac 60 mg IM once ordered. ef1 14:16 Amoxicillin-Clavulanate 875 mg 1 tabs PO once ordered. ef1 14:16 Financial registration complete. lg 14:17 Recheck B/P ordered. ef1 14:37 [facility] [place] Agreement was scanned into [employer] and attached to record. mm15 04/08 10:58 T-Sheet-- Draft Copy was scanned into [employer] and attached to record. gb Administered Medications: 04/07 14:28 Drug: Ondansetron ODT 4 mg [ondansetron 4 mg disintegrating tablet (1 tabs)] Route: PO; mlb1 14:28 Drug: Metoclopramide 10 mg [metoclopramide 10 mg tablet (1 tabs)] Route: PO; mlb1 14:28 Drug: ketorolac 60 mg [ketorolac 30 mg/mL (1 mL) injection solution (2 mL)] Route: IM; mlb1 Site: left gluteus; 15:34 Follow up: Response: No Adverse Reaction; Pain is decreased ttb 14:28 Drug: Amoxicillin-Clavulanate 1 tabs [amoxicillin 875 mg-potassium clavulanate 125 mg mlb1 tablet (1 tabs)] Route: PO; Signatures: Radha Gomes, Reg Reg gb Damian Donahue, Reg Reg lg Richmond Angelo RN RN mlb1 Kinza Figueroa PATeresaC PATeresaC ef1 Alondra Jones RN RN ttb Leonarda Oseguera mm15 The chart was reviewed and I authenticate all verbal orders and agree with the evaluation and treatment provided.Attachments: 14:37 [facility] [place] Agreement mm15 01/26 10:58 T-Sheet-- Draft Copy gb Chart Complete MTDD
== END 2016-04-07 15:36 | disposition home or self-care (01) ==
LOC: M ED 11:29
DX: J01.90 Acute sinusitis, unspecified (principal); R11.2 Nausea with vomiting, unspecified; G43.909 Migraine, unspecified, not intractable, without status migrainosus; Z88.2 Allergy status to sulfonamides; F17.210 Nicotine dependence, cigarettes, uncomplicated
CPT/HCPCS: 96372; 99283; J1885

== ENCOUNTER 2017-03-15 21:08 | Emergency (ER) | payer BC | END 2017-03-16 00:40 | disposition home or self-care (01) | LOC: M ED 03-16 00:40 | DX: J06.9 Acute upper respiratory infection, unspecified (principal); J45.909 Unspecified asthma, uncomplicated; Z88.1 Allergy status to other antibiotic agents; Z88.2 Allergy status to sulfonamides; F17.210 Nicotine dependence, cigarettes, uncomplicated | CPT/HCPCS: 71046 ==

== ENCOUNTER → 2017-06-13 | Outpatient (CLI) | payer BC | LOC: M WUC 15:29 | DX: M25.562 Pain in left knee (principal) | CPT/HCPCS: 73030 ==

== ENCOUNTER → 2017-06-28 | Outpatient (CLI) | payer BC | LOC: M WUC 16:09 | DX: R07.81 Pleurodynia (principal) | CPT/HCPCS: 71046 ==

== ENCOUNTER → 2017-07-15 | Outpatient (REF) | payer BC ==
[2017-07-15 11:52] LABS: BASO % 0.6 % (0.0-1.0); EOS # 0.6 10^3/uL (0.0-0.50); EOS % 8.5 % (0.0-3.0); HEMATOCRIT 48.1 % (42.0-52.0); HEMOGLOBIN 16.8 g/dl (13.5-17.5); IMMATURE GRANULOCYTE % 0.1 % (0-3.0); LYMPH # 2.3 10^3/uL (1.5-6.5); LYMPH % 33.5 % (24.0-44.0); MEAN CORPUSCULAR HGB CONC 34.9 g/dl (32.0-36.5); MEAN CORPUSCULAR VOLUME 88.7 fl (80.0-96.0); MONO # 0.5 10^3/uL (0.0-0.8); MONO % 7.4 % (0.0-5.0); NEUTROPHILS # 3.4 10^3/uL (1.8-7.7); NEUTROPHILS % 49.9 % (36.0-66.0); PLATELET COUNT, AUTOMATED 225 10^3/uL (150-450); RED BLOOD COUNT 5.42 10^6/uL (4.30-6.10); RED CELL DISTRIBUTION WIDTH 12.1 % (11.5-14.5); WHITE BLOOD COUNT 6.7 10^3/uL (4.0-10.0)
[2017-07-15 12:18] LABS: ALBUMIN 4.2 GM/DL (3.2-5.2); ALKALINE PHOSPHATASE 97 U/L (45-117); ALT/SGPT 50 U/L (12-78); ANION GAP 7 MEQ/L (8-16); AST/SGOT 24 U/L (7-37); BILIRUBIN,TOTAL 0.9 MG/DL (0.2-1.0); BLOOD UREA NITROGEN 12 MG/DL (7-18); CALCIUM LEVEL 9.1 MG/DL (8.5-10.1); CARBON DIOXIDE LEVEL 27 MEQ/L (21-32); CHLORIDE LEVEL 108 MEQ/L (98-107); CHOLESTEROL LEVEL 155 MG/DL (<200); CHOLESTEROL RISK RATIO 4.843 (<5); CREATININE FOR GFR 0.94 MG/DL (0.70-1.30); GLOMERULAR FILTRATION RATE > 60.0 (>60); GLUCOSE, FASTING 110 MG/DL (70-100); HDL CHOLESTEROL 32 MG/DL (>40); LDL CHOLESTEROL 97.4 MG/DL (<100); NON-HDL-C 123 MG/DL; POTASSIUM SERUM 4.2 MEQ/L (3.5-5.1); SODIUM LEVEL 142 MEQ/L (136-145); TOTAL PROTEIN 7.7 GM/DL (6.4-8.2); TRIGLYCERIDES LEVEL 128 MG/DL (<150)
== END ==
LOC: M SFHCPLAZ 09:10
DX: R06.09 Other forms of dyspnea (principal); Z68.36 Body mass index [BMI] 36.0-36.9, adult; Z13.220 Encounter for screening for lipoid disorders
CPT/HCPCS: 84443

== ENCOUNTER → 2017-07-21 | Outpatient (CLI) | payer BC | LOC: M WUC 17:57 | DX: M54.5 Low back pain (principal) ==

== ENCOUNTER 2017-09-11 22:18 | Emergency (ER) | payer BC ==
[2017-09-12] MEDS ORDERED: CARBAMIDE PEROXIDE 6.5% OTIC SOLN 15ML AS (02:30)
== END 2017-09-12 03:08 | disposition home or self-care (01) ==
LOC: M ED 22:18
DX: H61.23 Impacted cerumen, bilateral (principal); Z72.0 Tobacco use; Z88.2 Allergy status to sulfonamides
CPT/HCPCS: 69210

== ENCOUNTER 2017-09-19 09:42 | Emergency (ER) | payer BC | END 2017-09-19 11:05 | disposition home or self-care (01) | LOC: M ED 09:42 | DX: M51.26 Other intervertebral disc displacement, lumbar region (principal); M54.6 Pain in thoracic spine; J45.909 Unspecified asthma, uncomplicated; F17.200 Nicotine dependence, unspecified, uncomplicated; Z88.2 Allergy status to sulfonamides | CPT/HCPCS: 72128 ==

== ENCOUNTER 2017-12-21 16:52 | Emergency (ER) | payer SELFPAY, BC | END 2017-12-21 18:57 | disposition home or self-care (01) | LOC: M ED 16:52 | DX: J06.9 Acute upper respiratory infection, unspecified (principal); B34.9 Viral infection, unspecified; J45.909 Unspecified asthma, uncomplicated; Z88.1 Allergy status to other antibiotic agents; Z88.2 Allergy status to sulfonamides; F17.210 Nicotine dependence, cigarettes, uncomplicated | CPT/HCPCS: 99283 ==

== ENCOUNTER 2018-02-27 23:36 | Emergency (ER) | payer BC, SELFPAY ==
[2018-02-28] MEDS: AMOXICILLIN 500 MG CAP PO (02:45)
== END 2018-02-28 02:49 | disposition home or self-care (01) ==
LOC: M ED 23:36
DX: J01.00 Acute maxillary sinusitis, unspecified (principal); Z88.1 Allergy status to other antibiotic agents; Z88.2 Allergy status to sulfonamides
CPT/HCPCS: 99283

== ENCOUNTER 2018-03-21 21:10 | Emergency (ER) | payer BC ==
[~2018-03-21] VITALS: Ht 180.3 cm; Wt 109.1 kg
[2018-03-21 21:10] VITALS: BP 125/58
[~2018-03-21 21:10] MED LIST: AMOX500C PO; DEBR6.5S4 OTIC; MOME50SP NARES; MUCI600T37 PO; NAPR-885 PO; PROAAER10; ROBA500T PO; TESS100C PO; ZITHTAB PO
[2018-03-21] MEDS ORDERED: IBUP-1114 PO (22:44)
[2018-03-21] MEDS ORDERED: IBUPROFEN 400 MG TAB PO ONE (22:45)
--- NOTE | 2018-03-22 02:11 | REP ---
Clinical: Trauma. Technique: AP, lateral, bilateral oblique views right wrist . Findings: The carpal bones, surrounding osseous structures, soft tissues, and joint spaces are normal. Evidence for old fifth metacarpal bone fracture. There is no evidence for acute fracture or dislocation. No subcutaneous emphysema or radiodense foreign body. Impression: No acute fracture or dislocation Electronically Signed by Shan Ortiz MD 03/22/2018 02:02 A
--- NOTE | 2018-03-22 02:12 | REP ---
Clinical: Trauma. Technique: AP, lateral, bilateral oblique views right hand . Findings: Evidence for old healed fifth metacarpal bone fracture. The osseous structures and joint spaces are intact and there is no evidence for acute fracture or dislocation. Surrounding soft tissues are unremarkable. No subcutaneous emphysema or radiodense foreign body. Impression: Old boxers fracture. No acute fracture or dislocation. Electronically Signed by Shan Ortiz MD 03/22/2018 02:03 A
== END 2018-03-21 22:55 | disposition home or self-care (01) ==
LOC: M ED 21:10
DX: S63.591A Other specified sprain of right wrist, initial encounter (principal); W01.0XXA Fall on same level from slipping, tripping and stumbling without subsequent striking against object, initial encounter; Y92.098 Other place in other non-institutional residence as the place of occurrence of the external cause; Z88.2 Allergy status to sulfonamides; F17.200 Nicotine dependence, unspecified, uncomplicated

== ENCOUNTER 2018-04-04 21:08 | Emergency (ER) | payer OTHER, BC ==
[~2018-04-04] VITALS: Ht 180.3 cm; Wt 109.1 kg
[~2018-04-04 21:08] MED LIST changes: +IBUP-1114 PO
[2018-04-04] MEDS ORDERED: IBUPROFEN 600 MG TAB PO ONE (22:15)
[2018-04-04 22:39] VITALS: BP 135/68
--- NOTE | 2018-04-05 05:53 | REP ---
Clinical: Trauma. Technique: AP, lateral, bilateral oblique views right foot . Findings: The osseous structures and joint spaces are intact and normal. There is no evidence for acute fracture or dislocation. Surrounding soft tissues are unremarkable. No subcutaneous emphysema or radiodense foreign body. Impression: Normal right foot series . No acute fracture or dislocation. Electronically Signed by Shan Ortiz MD 04/05/2018 05:44 A
== END 2018-04-04 22:40 | disposition home or self-care (01) ==
LOC: M ED 21:08
DX: S90.414A Abrasion, right lesser toe(s), initial encounter (principal); S90.121A Contusion of right lesser toe(s) without damage to nail, initial encounter; W22.09XA Striking against other stationary object, initial encounter; Y92.89 Other specified places as the place of occurrence of the external cause; Y99.0 Civilian activity done for income or pay; F17.200 Nicotine dependence, unspecified, uncomplicated

== ENCOUNTER 2018-10-09 18:57 | Emergency (ER) | payer BC, OTHER, SELFPAY ==
[~2018-10-09] VITALS: Ht 180.3 cm; Wt 111.4 kg
[2018-10-09 18:58] VITALS: BP 153/85
--- NOTE | 2018-10-09 20:05 | REP ---
Clinical: Pain on flexion and extension. Technique: AP, lateral, bilateral oblique and sunrise views right knee . Findings: The osseous structures and joint spaces are intact and normal. There is no evidence for acute fracture or dislocation. No joint effusion is appreciated. Surrounding soft tissues are unremarkable. No subcutaneous emphysema or radiodense foreign body. Impression: Normal examination. No acute fracture or dislocation. Electronically Signed by Shan Ortiz MD 10/09/2018 07:56 P
== END 2018-10-10 00:41 | disposition left against medical advice (07) ==
LOC: M ED 18:57
DX: Z53.29 Procedure and treatment not carried out because of patient's decision for other reasons (principal)

== ENCOUNTER 2019-05-05 06:08 | Emergency (ER) | payer SELFPAY ==
[~2019-05-05] VITALS: Ht 180.3 cm; Wt 123.6 kg
[2019-05-05] MEDS ORDERED: ACET-683 PO (06:13)
[2019-05-05] MEDS ORDERED: LIDOCAINE 2% W/ EPINEPHRINE 1.7 ML DENTAL INJ SM ONE (07:30)
[2019-05-05] MEDS ORDERED: BENZOCAINE 20% GEL 9GM TUBE (ANBESOL MAX STRENGTH) TOP ONE (07:30)
[2019-05-05] MEDS ORDERED: IBUP-1022 PO (08:29)
[2019-05-05] MEDS ORDERED: AUGM875T28 PO (08:29)
[2019-05-05 08:33] VITALS: BP 136/82
== END 2019-05-05 08:38 | disposition home or self-care (01) ==
LOC: M ED 06:08
DX: K02.9 Dental caries, unspecified (principal); H92.01 Otalgia, right ear; J45.909 Unspecified asthma, uncomplicated; Z88.1 Allergy status to other antibiotic agents; Z88.2 Allergy status to sulfonamides; F17.210 Nicotine dependence, cigarettes, uncomplicated

== ENCOUNTER → 2020-02-21 | Outpatient (CLI) | payer SELFPAY ==
[~2020-02-21] MED LIST changes: +ACET-683 PO; +AUGM875T28 PO; +IBUP-1022 PO
== END ==
LOC: M LABSMTC 11:05
PROVIDERS: ATTEND Pediatrics
DX: Z20.828 Contact with and (suspected) exposure to other viral communicable diseases (principal)

== ENCOUNTER → 2020-03-23 | Outpatient (CLI) | payer SELFPAY | LOC: M LABSMTC 09:21 | PROVIDERS: ATTEND Pediatrics | DX: Z20.822 Contact with and (suspected) exposure to COVID-19 (principal) ==

== ENCOUNTER → 2020-03-30 | Outpatient (CLI) | payer SELFPAY | LOC: M LABSMTC 10:22 | PROVIDERS: ATTEND Pediatrics | DX: Z20.822 Contact with and (suspected) exposure to COVID-19 (principal) ==

== ENCOUNTER 2020-04-08 17:15 | Emergency (ER) | payer SELFPAY ==
[~2020-04-08] VITALS: Ht 180.3 cm; Wt 115.8 kg
--- NOTE | 2020-04-08 19:15 | REP ---
INDICATION: cough 2-3 weeks getting worse. COMPARISON: 06/28/2017 FINDINGS: The superior mediastinal structures are midline. The cardiac silhouette is unremarkable in size, shape, and position. The diaphragmatic surfaces of the lungs are regular, and the costophrenic angles are clear. The pulmonary farrell are clear. The imaged osseous structures are intact. IMPRESSION: There is no acute cardiopulmonary disease. <Electronically signed by Carlos Ferguson > 04/08/20 1915
[2020-04-08 19:44] VITALS: BP 130/63
--- OUTSIDE RECORDS SUMMARY | 2020-04-08 21:13 | CCD ---
Author Author [facility] Organization [facility] Address Unknown Phone Unavailable Support Name Relationship Address Phone SMITH Next Of Kin [address] [place] [address] FXCAPRARA* Next Of Kin [address] [place] [address] [place] [address] Libby Back DDS Next Of Kin [address] [place], [place] [id number] [place] [address] ARNAV Next Of Kin [address] [place] [address] UNEMPLOY[place] [address] KRYSTLE ROMO Next Of Kin [address] [facility] [address] [place] [address] Kannan PARISI Next Of Kin [address] [place] [address] ANTONIO PARISI Next Of Kin Unknown ANTONIO PARISI [place], [place] [phone] Re-disclosure Warning The records that you are about to access may contain information from federally-assisted alcohol or drug abuse programs. If such information is present, then the following federally mandated warning applies: This information has been disclosed to you from records protected by federal confidentiality rules (42 CFR part 2). The federal rules prohibit you from making any further disclosure of this information unless further disclosure is expressly permitted by the written consent of the person to whom it pertains or as otherwise permitted by 42 CFR part 2. A general authorization for the release of medical or other information is NOT sufficient for this purpose. The Federal rules restrict any use of the information to criminally investigate or prosecute any alcohol or drug abuse patient.The records that you are about to access may contain highly sensitive health information, the redisclosure of which is protected by Article 27-F of the [facility] Public Health law. If you continue you may have access to information: Regarding HIV / AIDS; Provided by facilities licensed or operated by the [facility] Office of Mental Health; or Provided by the [facility] Office for People With Developmental Disabilities. If such information is present, then the following [facility] mandated warning applies: This information has been disclosed to you from confidential records which are protected by state law. State law prohibits you from making any further disclosure of this information without the specific written consent of the person to whom it pertains, or as otherwise permitted by law. Any unauthorized further disclosure in violation of state law may result in a fine or senior living sentence or both. A general authorization for the release of medical or other information is NOT sufficient authorization for further disc losure. Family History Family Member Name Family Member Gender Family Member Status Date o f Status Description Data Source(s) Unknown Male Problem MEDENT ([facility]) Unknown Unknown Problem [facility] ([facility]) pgm,paternal uncles x 2 Medications Medication Brand Name Start Date Product Form Dose Route Admi nistrative Instructions Pharmacy Instructions Status Indications Reaction Description Data Source(s) 875-125 mg 05/05/2019 12:00:00 AM EST tablet 20 TAKE ONE TABLET BY MOUTH TWICE A DAY TAKE ONE TABLET BY MOUTH TWICE A DAY SOLD: 05/05/2019 [facility] 600 mg 05/05/2019 12:00:00 AM EST tablet 30 TAKE ONE TABLET BY MOUTH EVERY 6 HOURS NEEDED FOR PAIN TAKE ONE TABLET BY MOUTH EVERY 6 HOURS A S NEEDED FOR PAIN SOLD: 05/05/2019 [facility] Insurance Providers Payer name Policy type / Coverage type Policy ID Covered green party ID Covered green party's relationship to braden Policy Braden Plan Information SELF PAY ONLY [id number] SP [id number] [facility] MANAGEMENT DARLIN [id number] SP [id number] [place] 302/307 [id number] SP [id number] FX CAPRASlideMail SP Excellus BCBS CHP P [id number] S [id number] FX CAPRARA CAR COMPANIES [id number] SP [id number] ANSI-Commercial [id number] EXCELLUS BCBS B [id number] S [id number] ANSI-Commercial [id number] [place] PPO 302/307 [id number] SP [id number] ANSI-Commercial [id number] [place] PPO 302/307 [id number] SP [id number] [employer] BCBS B [id number] S [id number] [place] PPO 302/307 [id number] SP [id number] [place] PPO 302/307 [id number] SP [id number] BS Child [address]([facility] Health Maintenance Organization ([facility]) [id number] Family Dependent [id number] [facility] () Workers Compensation [id number] Self [id number] [place] PPO 302/307 [id number] SP [id number] BCBS OF [place] 306/806 [id number] SP [id number] BS Child [address]([facility],V) Health Maintenance Organization (O) [id number] Family Dependent [id number] [facility] [employer] [facility] () Workers Compensation [id number] Self [id number] BCBS/[employer] Commercial [id number] Self [id number] [id number] [employer]LL[employer] BCBS B [id number] S [id number] BC[employer] [place] 306/806 [id number] SP [id number] SELF PAY UNAVAILABLE SP UNAVAILA BLE HMO BLUE [id number] SP [id number] BLUE CROSS BLUE [facility] [id number] Results ID Date Data Source [id number] 03/30/2020 12:00:00 AM EST [facility] Name Value Range Interpretation Code Description Data Candelaria rce(s) Supporting Document(s) SARS-CoV-2 (COVID-19) RNA [Presence] in Respiratory specimen by PAM with probe detection Not Detected [facility] This lab was ordered by [facility] and reported by [employer]. ID Date Data Source [id number] 03/23/2020 12:00:00 AM EST [facility] Name Value Range Interpretation Code Description Data Candelaria rce(s) Supporting Document(s) SARS-CoV-2 (COVID-19) RNA [Presence] in Respiratory specimen by PAM with probe detection Not Detected [facility] This lab was ordered by [facility] and reported by [employer] ID Date Data Source [id number] 02/21/2020 12:00:00 AM EST [facility] Name Value Range Interpretation Code Description Data Candelaria rce(s) Supporting Document(s) 2019-nCoV RNA XXX PAM+probe-Imp [facility] This lab was ordered by [facility] and reported by [employer] Procedure
== END 2020-04-08 19:45 | disposition home or self-care (01) ==
LOC: M ED 17:15
DX: R05 Cough (principal); J02.9 Acute pharyngitis, unspecified; F17.210 Nicotine dependence, cigarettes, uncomplicated; Z88.2 Allergy status to sulfonamides

== ENCOUNTER 2023-01-26 09:33 | Emergency (ER) | payer SELFPAY ==
[~2023-01-26] VITALS: Ht 180.3 cm; Wt 78.1 kg
[~2023-01-26 09:33] MED LIST changes: -MOME50SP NARES; +NASO50SP3 NARES
[2023-01-26 12:05] LABS: BASO # 0.1 10^3/uL (0.0-0.2); BASO % 0.6 % (0.0-1.0); EOS # 0.4 10^3/uL (0.0-0.5); EOS % 4.1 % (0.0-3.0); HEMATOCRIT 44.4 % (42.0-52.0); LYMPH # 2.3 10^3/uL (1.5-5.0); LYMPH % 26.7 % (24.0-44.0); MEAN CORPUSCULAR HEMOGLOBIN 32.5 pg (27.0-33.0); MEAN CORPUSCULAR HGB CONC 33.8 g/dl (32.0-36.5); MEAN CORPUSCULAR VOLUME 96.3 fl (80.0-96.0); MONO # 0.6 10^3/uL (0.0-0.8); MONO % 7.5 % (2.0-8.0); NEUTROPHILS # 5.2 10^3/uL (1.5-8.5); NEUTROPHILS % 60.9 % (36.0-66.0); PLATELET COUNT, AUTOMATED 234 10^3/uL (150-450); RED BLOOD COUNT 4.61 10^6/uL (4.30-6.10); WHITE BLOOD COUNT 8.5 10^3/uL (4.0-10.0)
[2023-01-26 13:01] LABS: LIPASE 406 U/L (12-53)
[2023-01-26 13:03] LABS: ALKALINE PHOSPHATASE 56 U/L (46-116); ALT/SGPT 22 U/L (7.0-40); AST/SGOT 12 U/L (<34); BILIRUBIN,DIRECT 0.2 MG/DL (<0.4); BILIRUBIN,TOTAL 0.5 MG/DL (0.3-1.2); BLOOD UREA NITROGEN 6 MG/DL (9-23); CALCIUM LEVEL 9.3 MG/DL (8.5-10.1); CARBON DIOXIDE LEVEL 27 MMOL/L (20-31); CHLORIDE LEVEL 106 MMOL/L (98-107); CREATININE FOR GFR 0.65 MG/DL (0.70-1.30); GLOMERULAR FILTRATION RATE > 60.0 (>60); GLUCOSE, FASTING 87 MG/DL (60-100); POTASSIUM SERUM 3.7 MMOL/L (3.5-5.1); SODIUM LEVEL 141 MMOL/L (136-145); TOTAL PROTEIN 6.7 G/DL (5.7-8.2)
[2023-01-26] MEDS ORDERED: KETOROLAC 30 MG/ML 1ML VIAL IV ONE (13:15)
[2023-01-26] MEDS ORDERED: ISOVUE-370 76% 100ML VIAL As Ordered ONE (13:57)
[2023-01-26] MEDS ORDERED: CIPR-249 PO (16:18)
[2023-01-26 16:38] VITALS: BP 118/55; TEMP 97.9; O2SAT 100
== END 2023-01-26 16:40 | disposition home or self-care (01) ==
LOC: M ED 09:33
DX: K85.90 Acute pancreatitis without necrosis or infection, unspecified (principal); K52.9 Noninfective gastroenteritis and colitis, unspecified; J45.909 Unspecified asthma, uncomplicated; F17.200 Nicotine dependence, unspecified, uncomplicated; Z88.2 Allergy status to sulfonamides; Z88.1 Allergy status to other antibiotic agents
CPT/HCPCS: 74177; 76705; 80048; 80076; 83690; 85025; 96374; 99284; J1885; Q9967